=== PATIENT | female | born 1985 | race Caucasian/White ===

== ENCOUNTER → 2019-06-18 | Outpatient (CLI) | payer MEDICAID ==
[2019-06-18 15:38] LABS: Basophils % (A) 1 %; Eosinophils # (A) 0.3 k/uL (0-0.7); Eosinophils % (A) 4 %; HCT 44.2 % (34.0-46.0); HGB 15.1 gm/dL (11.4-16.0); Lymphocytes # (A) 1.8 k/uL (1.0-4.8); Lymphocytes % (A) 23 %; MCHC 34.1 g/dL (31.0-37.0); MCV 93.8 fL (80.0-100.0); Mean Platelet Volume 7.3; Monocytes # (A) 0.3 k/uL (0-1.0); Monocytes % (A) 4 %; Neutrophils # (A) 5.2 k/uL (1.3-7.7); Neutrophils % (A) 68 %; Platelet Count 248 k/uL (150-450); RBC 4.71 m/uL (3.80-5.40); WBC 7.6 k/uL (3.8-10.6)
[2019-06-18 18:34] LABS: Erythrocyte Sedimentation Rate 7 mm/hr (0-20)
[2019-06-18 23:17] LABS: Anti-DNA, DS unit <1.0 IU/mL; Anti-Smith Ab Interp NEGATIVE (NEGATIVE); Cardiolipin Ab IgG Interp NEGATIVE (NEGATIVE); Centromere Antibody <0.2 AI; Centromere Antibody Interp NEGATIVE (NEGATIVE); Cyclic Citrull Pep IgG Unit >300.0 U/mL; Cyclic Citrullinated Pep IgG POSITIVE (NEGATIVE); DNA Double-Stranded NEGATIVE (NEGATIVE); Scleroderma SC-70 Ab <0.2 AI
[2019-06-18 23:18] LABS: Cardiolipin Ab IgM Interp NEGATIVE (NEGATIVE); Cardiolipin IgM Antibody 3.2 U/mL
[2019-06-19 00:28] LABS: Protein, Total 6.7 g/dL (6.2-8.2)
[2019-06-19 00:59] LABS: Vitamin D 25 Hydroxy 22.1 ng/mL (30.0-100.0)
[2019-06-19 01:07] LABS: Rheumatoid Factor 361 IU/mL (0-15)
[2019-06-19 01:08] LABS: ALT 15 U/L (8-44); AST 16 U/L (13-35); African American GFR (CKD) 95.3 (60.0-200.0); Albumin/Globulin Ratio 2.05 (1.60-3.17); Alkaline Phosphatase 45 U/L (41-126); BUN/Creat Ratio 16.67 Ratio (12.00-20.00); C Reactive Protein <0.4 mg/dL (0.0-0.8); Calcium 8.9 mg/dL (8.7-10.3); Carbon Dioxide 24.3 mmol/L (21.6-31.8); Chloride 107 mmol/L (96-109); Creatine Kinase 57 U/L (26-186); Globulin 2.2 g/dL (1.6-3.3); Glucose 84 mg/dL (70-110); Potassium 4.3 mmol/L (3.5-5.5); Sodium 140 mmol/L (135-145); Total Bilirubin 0.8 mg/dL (0.3-1.2); Total Protein 6.7 g/dL (6.2-8.2); Uric Acid 5.1 mg/dL (2.9-7.7)
[2019-06-19 03:58] LABS: Hepatitis B Surface Antigen Non-Reactive (Non-Reactive); Hepatitis C IgG Antibody Non-Reactive (Non-Reactive)
[2019-06-19 08:48] LABS: Angiotensin-1 Converting Enz. 38 U/L (8-52)
[2019-06-19 10:42] LABS: HLA B27 NEGATIVE
[2019-06-19 13:21] LABS: APTT 36 Sec(s) (<43); Dilute Russell Viper Venom 35 Sec(s) (<44)
[2019-06-19 14:17] LABS: C-ANCA <1:20 Titer (<1:20)
[2019-06-20 11:15] LABS: Aldolase 3.6 U/L (1.2-7.6)
== END | disposition home or self-care (01) ==
LOC: LABWHC1 14:27
PROVIDERS: ATTEND Internal Medicine Rheumatology
DX: M05.79 Rheumatoid arthritis with rheumatoid factor of multiple sites without organ or systems involvement (principal); M54.5 Low back pain; G89.29 Other chronic pain
CPT/HCPCS: 36415; 80053; 82085; 82164; 82306; 82550; 84165; 84439; 84443; 84550; 85025; 85613; 85652; 85730; 86038; 86140; 86147; 86160; 86162; 86200; 86225; 86235; 86255; 86334; 86431; 86698; 86803; 86812; 87340

== ENCOUNTER 2020-02-20 18:18 | Inpatient (IN) | payer MEDICAID, MEDICARE ==
[2020-02-20] MEDS ORDERED: SODIUM CHLORIDE 0.9% 1,000 ML IV ONE (18:28)
[2020-02-20] MEDS ORDERED: SODIUM CHLORIDE 0.9% 500 ML 500 ML IV ONE ×2 (18:28→21:21)
--- NOTE | 2020-02-20 19:03 | ED ---
Fever HPI - General Chief Complaint: Fever Stated Complaint: UTI Time Seen by Provider: 02/20/20 18:25 Source: patient Mode of arrival: ambulatory Limitations: no limitations - History of Present Illness Initial Comments: 34yo female history of rheumatoid arthritis on Humira presents emergency department today for chief complaint of back pain, dysuria urgency frequency presenting to the emergency department today for chief complaint of antibiotics not using. Patient states that for over a week she has had dysuria urgency frequency. She states the past day she's had fever and low back pain. She states she was on Macrobid. Patient was concerned that the infection was spreading she states she is immune compromised on Humira. Patient denies darrell tional complaints. Denies any pelvic pain and vaginal discharge or concern for sexually transmitted diseases. Upon arrival patient appears well and in good spirits however she is tachycardic with a temperature of 99.5 suspected previous fever as patient had just taken Tylenol and ibuprofen a few hours prior to arrival - Related Data Home Medications Medication Instructions Recorded Confirmed ARIPiprazole [Abilify] 5 mg PO DAILY 02/20/20 02/20/20 Adalimumab [Humira] 80 mg SQ [id number] 02/20/20 02/20/20 Divalproex [Depakote] 250 mg PO HS 02/20/20 02/20/20 FLUoxetine HCL [PROzac] 20 mg PO HS 02/20/20 02/20/20 Allergies Allergy/AdvReac Type Severity Reaction Status Date / Time lamotrigine [From Lamictal] Allergy Intermediate Rash/Hives Verified 02/20/20 21:17 Review of Systems ROS Statement: Those systems with pertinent positive or pertinent negative responses have been documented in the HPI. ROS Other: All systems not noted in ROS Statement are negative. Past Medical History Past Medical History: Rheumatoid Arthritis (RA) Additional Past Medical History / Comment(s): RA History of Any Multi-Drug Resistant Organisms: None Reported Past Surgical History: No Surgical Hx Reported Past Psychological History: Depression Smoking Status: Never smoker Past Alcohol Use History: Occasional Past Drug Use History: None Reported - Past Family History Mother Family Medical History: No Reported History General Exam - General Exam Comments Initial Comments: General: The patient is awake and alert, in no distress Eye: +3 mm pupils are equal, round and reactive to light, extra-ocular movements are intact. No nystagmus. There is normal conjunctiva bilaterally. No signs of icterus. Ears, nose, mouth and throat: There are moist mucous membranes and no oral lesions. Neck: The neck is supple, there is no tenderness or JVD. Cardiovascular: There is a regular rate and rhythm. No murmur, rub or gallop is appreciated. Respiratory: Lungs are clear to auscultation, respirations are non-labored, breath sounds are equal. No wheezes, stridor, rales, or rhonchi. Gastrointestinal: Soft, non-distended, non-tender abdomen without masses or organomegaly noted. There is no rebound or guarding present.SOme CVA tenderness b/l. Musculoskeletal: Normal ROM, no tenderness. Strength 5/5. Sensation intact. Radial pulses equal bilaterally 2+. Neurological: A&O x 3. CN II-XII intact grossly, There are no obvious motor or sensory deficits. Coordination appears grossly intact. Speech is normal. Skin: Skin is warm and dry and no rashes or lesions are noted. Psychiatric: Cooperative, appropriate mood & affect, normal judgment. Limitations: no limitations Course Vital Signs 02/20/20 02/20/20 18:20 20:31 Temperature 99.5 F 98 F Pulse Rate 137 H 113 H Respiratory 20 16 Rate Blood Pressure 122/86 123/63 O2 Sat by Pulse 99 99 Oximetry Medical Decision Making - Medical Decision Making 34 or female presenting for urinary tract symptoms low back pain fever. Concern for pyelonephritis given physical examination history. Patient is tachycardic concern for developing sepsis. Speculum IV antibiotics and fluids initiated. Patient failed outpatient treatment and is immuncompromised. Will admit. Blood cultures and urine cultures pending. Patient agreeable to admission. Dr. Ochoa accepted admission. Total 30 minutes of critical care time which include speaking to other providers reviewing labs history and physical examination - Lab Data Result diagrams: 02/20/20 18:53 02/20/20 18:53 Lab Results 02/20/20 02/20/20 02/20/20 Range/Units 18:53 18:53 18:53 WBC 11.2 H (3.8-10.6) k/uL RBC 4.27 (3.80-5.40) m/uL Hgb 13.5 (11.4-16.0) gm/dL Hct 39.5 (34.0-46.0) % MCV 92.6 (80.0-100.0) fL MCH 31.5 (25.0-35.0) pg MCHC 34.1 (31.0-37.0) g/dL RDW 12.7 (11.5-15.5) % Plt Count 193 (150-450) k/uL Neutrophils % 85 % Lymphocytes % 9 % Monocytes % 3 % Eosinophils % 2 % Basophils % 0 % Neutrophils # 9.5 H (1.3-7.7) k/uL Lymphocytes # 1.0 (1.0-4.8) k/uL Monocytes # 0.4 (0-1.0) k/uL Eosinophils # 0.2 (0-0.7) k/uL Basophils # 0.0 (0-0.2) k/uL Sodium 136 L (137-145) mmol/L Potassium 3.7 (3.5-5.1) mmol/L Chloride 104 (98-107) mmol/L Carbon Dioxide 22 (22-30) mmol/L Anion Gap 10 mmol/L BUN 8 (7-17) mg/dL Creatinine 0.78 (0.52-1.04) mg/dL Est GFR (CKD-EPI)AfAm >90 (>60 ml/min/1.73 sqM) Est GFR (CKD-EPI)NonAf >90 (>60 ml/min/1.73 sqM) Glucose 120 H (74-99) mg/dL Plasma Lactic Acid [place] (0.7-2.0) mmol/L Calcium 8.7 (8.4-10.2) mg/dL Total Bilirubin 1.2 (0.2-1.3) mg/dL AST 20 (14-36) U/L ALT 13 (4-34) U/L Alkaline Phosphatase 40 (38-126) U/L Total Protein 6.5 (6.3-8.2) g/dL Albumin 3.7 (3.5-5.0) g/dL Urine Color Yellow Urine Appearance Cloudy H (Clear) Urine pH 6.0 (5.0-8.0) Ur Specific [place] 1.021 (1.001-1.035) Urine Protein 2+ H (Negative) Urine Glucose (UA) Negative (Negative) Urine Ketones Trace H (Negative) Urine Blood Moderate H (Negative) Urine Nitrite Negative (Negative) Urine Bilirubin Negative (Negative) Urine Urobilinogen 3.0 (<2.0) mg/dL Ur Leukocyte Esterase Large H (Negative) Urine RBC 21 H (0-5) /hpf Urine WBC >182 H (0-5) /hpf Urine WBC Clumps Few H (None) /hpf Ur Squamous Epith Cells 4 (0-4) /hpf Urine Bacteria Moderate H (None) /hpf Urine Mucus Many H (None) /hpf 02/20/20 Range/Units 18:53 WBC (3.8-10.6) k/uL RBC (3.80-5.40) m/uL Hgb (11.4-16.0) gm/dL Hct (34.0-46.0) % MCV (80.0-100.0) fL MCH (25.0-35.0) pg MCHC (31.0-37.0) g/dL RDW (11.5-15.5) % Plt Count (150-450) k/uL Neutrophils % % Lymphocytes % % Monocytes % % Eosinophils % % Basophils % % Neutrophils # (1.3-7.7) k/uL Lymphocytes # (1.0-4.8) k/uL Monocytes # (0-1.0) k/uL Eosinophils # (0-0.7) k/uL Basophils # (0-0.2) k/uL Sodium (137-145) mmol/L Potassium (3.5-5.1) mmol/L Chloride (98-107) mmol/L Carbon Dioxide (22-30) mmol/L Anion Gap mmol/L BUN (7-17) mg/dL Creatinine (0.52-1.04) mg/dL Est GFR (CKD-EPI)AfAm (>60 ml/min/1.73 sqM) Est GFR (CKD-EPI)NonAf (>60 ml/min/1.73 sqM) Glucose (74-99) mg/dL Plasma Lactic Acid [place] 0.9 (0.7-2.0) mmol/L Calcium (8.4-10.2) mg/dL Total Bilirubin (0.2-1.3) mg/dL AST (14-36) U/L ALT (4-34) U/L Alkaline Phosphatase (38-126) U/L Total Protein (6.3-8.2) g/dL Albumin (3.5-5.0) g/dL Urine Color Urine Appearance (Clear) Urine pH (5.0-8.0) Ur Specific [place] (1.001-1.035) Urine Protein (Negative) Urine Glucose (UA) (Negative) Urine Ketones (Negative) Urine Blood (Negative) Urine Nitrite (Negative) Urine Bilirubin (Negative) Urine Urobilinogen (<2.0) mg/dL Ur Leukocyte Esterase (Negative) Urine RBC (0-5) /hpf Urine WBC (0-5) /hpf Urine WBC Clumps (None) /hpf Ur Squamous Epith Cells (0-4) /hpf Urine Bacteria (None) /hpf Urine Mucus (None) /hpf Disposition Clinical Impression: Pyelonephritis, Fever, Sepsis Disposition: ADMITTED IP TO THIS HOSP Condition: Stable Is patient prescribed a controlled substance at d/c from ED?: No Time of Disposition: 21:22 Decision to Admit Reason: Admit from EC Decision Date: 02/20/20 Decision Time: 21:22
[2020-02-20 19:08] LABS: Basophils % (A) 0 %; Eosinophils # (A) 0.2 k/uL (0-0.7); Eosinophils % (A) 2 %; HCT 39.5 % (34.0-46.0); HGB 13.5 gm/dL (11.4-16.0); Lymphocytes % (A) 9 %; MCH 31.5 pg (25.0-35.0); MCHC 34.1 g/dL (31.0-37.0); MCV 92.6 fL (80.0-100.0); Mean Platelet Volume 7.8; Monocytes # (A) 0.4 k/uL (0-1.0); Monocytes % (A) 3 %; Neutrophils # (A) 9.5 k/uL (1.3-7.7); Neutrophils % (A) 85 %; Platelet Count 193 k/uL (150-450); RBC 4.27 m/uL (3.80-5.40); RDW 12.7 % (11.5-15.5); WBC 11.2 k/uL (3.8-10.6)
[2020-02-20 19:19] LABS: ALT 13 U/L (4-34); AST 20 U/L (14-36); African American GFR (CKD) >90 (>60 ml/min/1.73 sqM); Albumin 3.7 g/dL (3.5-5.0); Alkaline Phosphatase 40 U/L (38-126); Anion Gap 10 mmol/L; Blood Urea Nitrogen 8 mg/dL (7-17); Calcium 8.7 mg/dL (8.4-10.2); Carbon Dioxide 22 mmol/L (22-30); Chloride 104 mmol/L (98-107); Glucose 120 mg/dL (74-99); Non-African American GFR(CKD) >90 (>60 ml/min/1.73 sqM); Potassium 3.7 mmol/L (3.5-5.1); Sodium 136 mmol/L (137-145); Total Bilirubin 1.2 mg/dL (0.2-1.3); Total Protein 6.5 g/dL (6.3-8.2)
[2020-02-20 19:21] LABS: Appearance,Urine Cloudy (Clear); Bacteria,Urine Moderate /hpf; Bilirubin,Urine Negative (Negative); Blood,Urine Moderate (Negative); Color,Urine Yellow; Glucose,Urine (UA) Negative (Negative); Ketones,Urine Trace (Negative); Leukocyte Esterase,Urine Large (Negative); Mucus,Urine Many /hpf; Nitrite,Urine Negative (Negative); Protein,Urine 2+ (Negative); RBC,Urine 21 /hpf (0-5); Specific Gravity,Urine 1.021 (1.001-1.035); Squamous Epithelial Cell,Urine 4 /hpf (0-4); WBC,Urine >182 /hpf (0-5)
[2020-02-20] MEDS ORDERED: NALOXONE 0.4 MG/ML 1 ML VIAL IV PRN (19:46)
[2020-02-20] MEDS: FLUoxetine HCL 20 MG CAP PO SCH (23:23)
[2020-02-20] MEDS: DIVALPROEX 250 MG TABLET.DR PO SCH (23:23)
[2020-02-20] MEDS: SODIUM CHLORIDE 0.9% 1,000 ML IV SCH (23:23)
[2020-02-21] MEDS: ACETAMINOPHEN TAB 325 MG TAB PO PRN ×2 (04:07→16:21)
[2020-02-21] MEDS: SODIUM CHLORIDE 0.9% 1,000 ML IV SCH ×3 (04:46→20:27)
[2020-02-21] MEDS: IBUPROFEN 600 MG TAB PO PRN ×3 (05:32→20:25)
[2020-02-21] MEDS ORDERED: IBUPROFEN 600 MG TAB PO SCH (09:00)
[2020-02-21] MEDS: ARIPiprazole 5 MG TAB PO SCH (09:22)
[2020-02-21] MEDS: FLUoxetine HCL 20 MG CAP PO SCH (20:36)
[2020-02-21] MEDS: DIVALPROEX 250 MG TABLET.DR PO SCH (20:36)
--- NOTE | 2020-02-21 21:25 | P.HPIM ---
History of Present Illness H&P Date: 02/21/20 Chief Complaint: dysuria, flank pain Camila Good is a 34 yo F with PMH of RA on humira, depression who presented to the ED complaining of fever, chills, dysuria and flank pain x2 weeks. She was seen at her PCP office at the end of last month and was prescribed macrobid for acute cystitis, which she feels did improve her symptoms. She notes that after she received her usual maintenance dose of humira about a week ago her symptoms came back. She has been feeling chills every night as well as dysuria. She denies nausea or vomiting. In the ED she was tachycardic at 135, temp 99.5 and had just taken ibuprofen prior to arrival. WBC 11.2, UA with mod bacteria. Outpatient urine culture with hernandez-sensitive E coli. Review of Systems All systems: negative Constitutional: Reports chills, Reports fever Eyes: denies blurred vision, denies pain Ears, nose, mouth and throat: Denies headache, Denies sore throat Cardiovascular: Denies chest pain, Denies shortness of breath Respiratory: Denies cough Gastrointestinal: Denies abdominal pain, Denies diarrhea, Denies nausea, Denies vomiting Genitourinary: Reports as per HPI, Reports dysuria, Reports flank pain, Denies hematuria Musculoskeletal: Denies myalgias Integumentary: Denies pruritus, Denies rash Neurological: Denies numbness, Denies weakness Psychiatric: Denies anxiety, Denies depression Endocrine: Denies fatigue, Denies weight change Past Medical History Past Medical History: Rheumatoid Arthritis (RA) Additional Past Medical History / Comment(s): RA History of Any Multi-Drug Resistant Organisms: None Reported Past Surgical History: No Surgical Hx Reported Past Anesthesia/Blood Transfusion Reactions: No Reported Reaction Past Psychological History: Depression Smoking Status: Never smoker Past Alcohol Use History: Occasional Past Drug Use History: None Reported - Past Family History Mother Family Medical History: No Reported History Medications and Allergies Home Medications Medication Instructions Recorded Confirmed Type ARIPiprazole [Abilify] 5 mg PO DAILY 02/20/20 02/20/20 History Adalimumab [Humira] 80 mg SQ [id number] 02/20/20 02/20/20 History Divalproex [Depakote] 250 mg PO HS 02/20/20 02/20/20 History FLUoxetine HCL [PROzac] 20 mg PO HS 02/20/20 02/20/20 History Allergies Allergy/AdvReac Type Severity Reaction Status Date / Time lamotrigine [From Lamictal] Allergy Intermediate Rash/Hives Verified 02/20/20 21:17 Physical Exam Vitals: Vital Signs Temp Pulse Resp BP Pulse Ox 02/21/20 20:21 99 F 113 H 18 91/61 100 02/21/20 16:15 98.8 F 99 18 96/57 100 02/21/20 09:12 97.9 F 107 H 16 100 02/20/20 23:00 99.4 F 102 H 18 103/59 100 Intake and Output 02/21/20 02/21/20 02/21/20 06:59 14:59 22:59 Intake Total 580 500 Output Total 200 Balance 380 500 Intake: Oral 580 500 Output: Urine 200 Other: Voiding Method Toilet Toilet Toilet # Voids 3 General: well nourished, well developed, NAD. Vitals reviewed Eyes: PERRL, EOMI, conjunctiva normal HENT: normocephalic, mucus membranes moist Neck: supple, no JVD Lungs: normal respiratory effort, no wheezes or rales CV: Regular rate and rhythm, no murmur. Peripheral pulses 2+ Abdomen: soft, nondistended, no organomegaly. Mild CVA tenderness Lymph: no cervical or axillary LAD Skin: warm and dry. Neuro: A&Ox3, normal mood and affect Results CBC & Chem 7: 02/20/20 18:53 02/20/20 18:53 Labs: Microbiology - Last 24 Hours (Table) 02/20/20 18:53 Blood Culture - Preliminary Blood No Growth after 24 hours 02/20/20 18:53 Urine Culture - Preliminary Urine,Clean Catch Thrombosis Risk Factor Assmnt - Choose All That Apply Any of the Below Risk Factors Present?: Yes Each Factor Represents 1 point: Obesity (BMI >25) Other Risk Factors: No Thrombosis Risk Factor Assessment Total Risk Factor Score: 1 Thrombosis Risk Factor Assessment Level: Low Risk Assessment and Plan (1) Fever Current Visit: Yes Status: Acute Code(s): R50.9 - FEVER, UNSPECIFIED SNOMED Code(s): 244841661 (2) Pyelonephritis Current Visit: Yes Status: Acute Code(s): N12 - TUBULO-INTERSTITIAL NEPHRITIS, NOT SPCF ACUTE OR CHRONIC SNOMED Code(s): 08413273 (3) Sepsis Current Visit: Yes Status: Acute Code(s): A41.9 - SEPSIS, UNSPECIFIED ORGANISM SNOMED Code(s): 64390045 Plan: 1. Sepsis due to pyelonephritis. SIRS 2/4 with immunocompromise. Admit and start rocephin. Follow blood and urine cultures 2. Major depression. Continue abilify, prozac, depakote 3. RA. Resume humira after discharge
[2020-02-22] MEDS: SODIUM CHLORIDE 0.9% 1,000 ML IV SCH ×4 (01:19→23:11)
[2020-02-22] MEDS: ACETAMINOPHEN TAB 325 MG TAB PO PRN ×2 (01:42→09:41)
[2020-02-22] MEDS: IBUPROFEN 600 MG TAB PO PRN ×3 (05:24→21:21)
[2020-02-22] MEDS: ARIPiprazole 5 MG TAB PO SCH (09:36)
[2020-02-22] MEDS: FAMOTIDINE 20 MG TAB PO SCH ×2 (15:53→20:32)
[2020-02-22] MEDS: FLUoxetine HCL 20 MG CAP PO SCH (20:32)
[2020-02-22] MEDS: DIVALPROEX 250 MG TABLET.DR PO SCH (20:32)
--- NOTE | 2020-02-22 23:09 | P.PN ---
Subjective Progress Note Date: 02/22/20 Principal diagnosis: Sepsis secondary to UTI Camila Good is a 34 yo F with PMH of RA on humira, depression who presented to the ED complaining of fever, chills, dysuria and flank pain x2 weeks. She was seen at her PCP office at the end of last month and was prescribed macrobid for acute cystitis, which she feels did improve her symptoms. She notes that after she received her usual maintenance dose of humira about a week ago her symptoms came back. She has been feeling chills every night as well as dysuria. She denies nausea or vomiting. In the ED she was tachycardic at 135, temp 99.5 and had just taken ibuprofen prior to arrival. WBC 11.2, UA with mod bacteria. Outpatient urine culture with hernandez-sensitive E coli. 02/22/2020 Patient is currently lying in the bed. Still complains of right-sided flank pain. Did have chills last night T-max was 99.1. Urine culture showed gram- negative bacilli. Patient is currently being continued on antibiotics in the form of ceftriaxone. Currently afebrile. Continued on IV hydration and pain management with Motrin and Tylenol. Current medications reviewed. Objective - Vital Signs Vital signs: Vital Signs Temp 99.1 F 02/22/20 08:25 Pulse 108 H 02/22/20 08:25 Resp 18 02/22/20 08:25 BP 101/55 02/22/20 08:25 Pulse Ox 97 02/22/20 08:25 Intake & Output 02/21/20 02/22/20 02/22/20 18:59 06:59 18:59 Intake Total 500 2049 Balance 500 2049 Intake: Intake, IV Titration 1000 Amount Sodium Chloride 0.9% 1, 1000 000 ml @ 130 mls/hr IV . Q7H42M [facility] Rx#:[id number] Oral 500 1050 Other: Voiding Method Toilet Toilet Toilet # Voids 3 3 - Exam General: well nourished, well developed, NAD. Vitals reviewed Eyes: PERRL, EOMI, conjunctiva normal HENT: normocephalic, mucus membranes moist Neck: supple, no JVD Lungs: normal respiratory effort, no wheezes or rales CV: Regular rate and rhythm, no murmur. Peripheral pulses 2+ Abdomen: soft, nondistended, no organomegaly. Mild CVA tenderness Lymph: no cervical or axillary LAD Skin: warm and dry. Neuro: A&Ox3, normal mood and affect - Labs CBC & Chem 7: 02/20/20 18:53 06 18:53 Labs: Microbiology - Last 24 Hours (Table) 02/20/20 18:53 Urine Culture - Preliminary Urine,Clean Catch Gram Neg Bacilli 02/20/20 18:53 Blood Culture - Preliminary Blood No Growth after 24 hours Assessment and Plan Assessment: Acute pyelonephritis Gram-negative bacilli urinary tract infection Sepsis secondary to above History of rheumatoid arthritis currently on Humira Major depression DVT prophylaxis Plan: Patient will be continued on IV hydration and antibiotics in the form of ceftriaxone. Follow-up final urine culture report. blood cx negative sofar Con tinue with pain management and monitor closely. Patient will continue antidepressants as per home regimen and also will resume Humira after discharge. Hold due to acute infection. Further recommendations based on the clinical course. Time with Patient: Greater than 30
[2020-02-23 06:27] LABS: Basophils % (A) 0 %; Eosinophils # (A) 0.1 k/uL (0-0.7); Eosinophils % (A) 1 %; HGB 10.7 gm/dL (11.4-16.0); Lymphocytes # (A) 1.2 k/uL (1.0-4.8); Lymphocytes % (A) 30 %; MCH 31.8 pg (25.0-35.0); MCHC 33.6 g/dL (31.0-37.0); MCV 94.5 fL (80.0-100.0); Mean Platelet Volume 8.4; Monocytes # (A) 0.3 k/uL (0-1.0); Monocytes % (A) 8 %; Neutrophils # (A) 2.2 k/uL (1.3-7.7); Neutrophils % (A) 57 %; Platelet Count 138 k/uL (150-450); RBC 3.38 m/uL (3.80-5.40); RDW 12.6 % (11.5-15.5)
[2020-02-23 06:45] LABS: African American GFR (CKD) >90 (>60 ml/min/1.73 sqM); Anion Gap 2 mmol/L; Blood Urea Nitrogen 3 mg/dL (7-17); Calcium 7.4 mg/dL (8.4-10.2); Carbon Dioxide 23 mmol/L (22-30); Chloride 114 mmol/L (98-107); Glucose 96 mg/dL (74-99); Non-African American GFR(CKD) >90 (>60 ml/min/1.73 sqM); Potassium 3.4 mmol/L (3.5-5.1); Sodium 139 mmol/L (137-145)
[2020-02-23] MEDS: IBUPROFEN 600 MG TAB PO PRN ×3 (07:06→18:42)
[2020-02-23] MEDS: SODIUM CHLORIDE 0.9% 1,000 ML IV SCH ×2 (08:08→14:43)
[2020-02-23] MEDS: FAMOTIDINE 20 MG TAB PO SCH (08:08)
[2020-02-23] MEDS: ARIPiprazole 5 MG TAB PO SCH (08:08)
[2020-02-23] MEDS ORDERED: POTASSIUM CHLORIDE ER 20 MEQ TAB.ER PO STA (11:49)
[2020-02-23] MEDS ORDERED: PANTOPRAZOLE 40 MG TABLET PO STA (20:06)
[2020-02-23] MEDS: DIVALPROEX 250 MG TABLET.DR PO SCH (20:13)
[2020-02-23] MEDS: FLUoxetine HCL 20 MG CAP PO SCH (20:13)
--- NOTE | 2020-02-24 01:22 | P.PN ---
Subjective Progress Note Date: 02/23/20 Principal diagnosis: Sepsis secondary to UTI Camila Good is a 34 yo F with PMH of RA on humira, depression who presented to the ED complaining of fever, chills, dysuria and flank pain x2 weeks. She was seen at her PCP office at the end of last month and was prescribed macrobid for acute cystitis, which she feels did improve her symptoms. She notes that after she received her usual maintenance dose of humira about a week ago her symptoms came back. She has been feeling chills every night as well as dysuria. She denies nausea or vomiting. In the ED she was tachycardic at 135, temp 99.5 and had just taken ibuprofen prior to arrival. WBC 11.2, UA with mod bacteria. Outpatient urine culture with hernandez-sensitive E coli. 02/22/2020 Patient is currently lying in the bed. Still complains of right-sided flank pain. Did have chills last night T-max was 99.1. Urine culture showed gram- negative bacilli. Patient is currently being continued on antibiotics in the form of ceftriaxone. Currently afebrile. Continued on IV hydration and pain management with Motrin and Tylenol. 02/23/2020 Patient is currently ambulating in the hallway. No complaints of chest pain or shortness of breath. Still having right -sided flank pain but improved compared to yesterday. Patient has been afebrile. Tolerating oral diet and IV fluids will be discontinued. Urine culture showed gram-negative bacilli and final culture report is pending. Anticipate discharge tomorrow with antibiotic course at home. Current medications reviewed. Objective - Vital Signs Vital signs: Vital Signs Temp 98.4 F 02/23/20 20:03 Pulse 100 02/23/20 20:03 Resp 16 02/23/20 20:03 BP 104/64 02/23/20 20:03 Pulse Ox 100 02/23/20 20:03 Intake & Output 02/23/20 02/23/20 02/24/20 06:59 18:59 06:59 Intake Total 3150 Balance 3150 Intake: Intake, IV Titration 2000 Amount Sodium Chloride 0.9% 1, 2000 000 ml @ 130 mls/hr IV . Q7H42M [facility] Rx#:[id number] Oral 1150 Other: Voiding Method Toilet Toilet # Voids 2 3 - Exam General: well nourished, well developed, NAD. Vitals reviewed Eyes: PERRL, EOMI, conjunctiva normal HENT: normocephalic, mucus membranes moist Neck: supple, no JVD Lungs: normal respiratory effort, no wheezes or rales CV: Regular rate and rhythm, no murmur. Peripheral pulses 2+ Abdomen: soft, nondistended, no organomegaly. Mild CVA tenderness Lymph: no cervical or axillary LAD Skin: warm and dry. Neuro: A&Ox3, normal mood and affect - Labs CBC & Chem 7: 02/23/20 05:49 02/23/20 05:49 Labs: Abnormal Lab Results - Last 24 Hours (Table) 02/23/20 02/23/20 Range/Units 05:49 05:49 RBC 3.38 L (3.80-5.40) m/uL Hgb 10.7 L (11.4-16.0) gm/dL Hct 32.0 L (34.0-46.0) % Plt Count 138 L (150-450) k/uL Potassium 3.4 L (3.5-5.1) mmol/L Chloride 114 H (98-107) mmol/L BUN 3 L (7-17) mg/dL Calcium 7.4 L (8.4-10.2) mg/dL Microbiology - Last 24 Hours (Table) 02/20/20 18:53 Urine Culture - Final Urine,Clean Catch Escherichia coli 02/20/20 18:53 Blood Culture - Preliminary Blood No Growth after 48 hours Assessment and Plan Assessment: Acute pyelonephritis Gram-negative bacilli urinary tract infection Sepsis secondary to above History of rheumatoid arthritis currently on Humira Major depression DVT prophylaxis Plan: Patient will be continued on IV hydration and antibiotics in the form of ceftriaxone. Follow-up final urine culture report. blood cx negative sofar Continue with pain management and monitor closely. Patient will continue antidepressants as per home regimen and also will resume Humira after discharge. Hold due to acute infection. Further recommendations based on the clinical course. Time with Patient: Greater than 30
[2020-02-24] MEDS: IBUPROFEN 600 MG TAB PO PRN (02:18)
[2020-02-24] MEDS ORDERED: PANTOPRAZOLE 40 MG TABLET PO SCH (07:30)
[2020-02-24] MEDS: ARIPiprazole 5 MG TAB PO SCH (08:19)
[2020-02-24 09:39] VITALS: BP 116/77; PULSE 97; RESP 20; TEMP 98.1
--- NOTE | 2020-02-24 10:10 | P.DS ---
Providers Date of admission: 02/20/20 20:13 Expected date of discharge: 02/24/20 Attending physician: Viraj Ochoa MD Primary care physician: Mady Ochoa Hospital Course: Final Diagnoses: Sepsis secondary to pyelonephritis Depression Rheumatoid arthritis Hypokalemia Hospital course:Camila Good is a 34 yo F with PMH of RA on humira, depression who presented to the ED complaining of fever, chills, dysuria and flank pain x2 weeks. She was seen at her PCP office at the end of last month and was prescribed macrobid for acute cystitis, which she feels did improve her symptoms. She notes that after she received her usual maintenance dose of humira about a week ago her symptoms came back. She has been feeling chills every night as well as dysuria. She denies nausea or vomiting. In the ED she was tachycardic at 135, temp 99.5 and had just taken ibuprofen prior to arrival. WBC 11.2, UA with mod bacteria. Outpatient urine culture with hernandez-sensitive E coli. Urine cultures reporting E. coli . Maintained on gentle fluid hydration, IV antibiotics .Significant clinical improvement. Patient will be discharged home today in a stable condition with guarded prognosis pending follow-up electrolytes. The impression and plan of care has been dictated as directed. : I performed a history and examination of this patient, discussed the same with the dictator. I agree with the dictator's note ,documented as a scribe. Any additional findings or plans will be noted. Patient Condition at Discharge: Stable Plan - Discharge Summary Discharge Rx Participant: No New Discharge Prescriptions: New Ciprofloxacin HCl [Cipro] 500 mg PO Q12H 5 Days #10 tab Acetaminophen Tab [Tylenol] 650 mg PO Q6HR PRN tab PRN Reason: Fever and/ or Mild Pain Continue FLUoxetine HCL [PROzac] 20 mg PO HS ARIPiprazole [Abilify] 5 mg PO DAILY Divalproex [Depakote] 250 mg PO HS Adalimumab [Humira] 80 mg SQ [id number] Discharge Medication List ARIPiprazole [Abilify] 5 mg PO DAILY 02/20/20 [History] Adalimumab [Humira] 80 mg SQ [id number] 02/20/20 [History] Divalproex [Depakote] 250 mg PO HS 02/20/20 [History] FLUoxetine HCL [PROzac] 20 mg PO HS 02/20/20 [History] Acetaminophen Tab [Tylenol] 650 mg PO Q6HR PRN tab 02/24/20 [Rx] Ciprofloxacin HCl [Cipro] 500 mg PO Q12H 5 Days #10 tab 02/24/20 [Rx] Follow up Appointment(s)/Referral(s): Viraj Ochoa MD [STAFF PHYSICIAN] - 1-2 Days (Please schedule follow-up appointment for tomorrow at [facility] prior to discharge. February 24 at 2:15pm) Ambulatory/Diagnostic Orders: Complete Blood Count w/diff [LAB.AMB] Time Frame: 3 Days, Location: None Selected Patient Instructions/Handouts: Urinary Tract Infection in Women (DC) Activity/Diet/Wound Care/Special Instructions: Pending f/u labs. FOLLOW UP DIRECTED, SOONER IF PROBLEMS OR CONCERNS IE...WORSENING SYMPTOMS THAT BROUGHT YOU IN.
[2020-02-24 10:34] LABS: HGB 10.3 gm/dL (11.4-16.0); MCH 31.2 pg (25.0-35.0); MCHC 33.2 g/dL (31.0-37.0); MCV 94.2 fL (80.0-100.0); Mean Platelet Volume 7.7; Platelet Count 195 k/uL (150-450); RBC 3.29 m/uL (3.80-5.40); RDW 12.7 % (11.5-15.5); WBC 4.8 k/uL (3.8-10.6)
[2020-02-24 10:39] LABS: African American GFR (CKD) >90 (>60 ml/min/1.73 sqM); Anion Gap 3 mmol/L; Blood Urea Nitrogen 2 mg/dL (7-17); Calcium 7.8 mg/dL (8.4-10.2); Carbon Dioxide 23 mmol/L (22-30); Chloride 113 mmol/L (98-107); Glucose 94 mg/dL (74-99); Magnesium 1.9 mg/dL (1.6-2.3); Non-African American GFR(CKD) >90 (>60 ml/min/1.73 sqM); Potassium 3.4 mmol/L (3.5-5.1); Sodium 139 mmol/L (137-145)
[2020-02-24] MEDS ORDERED: Potassium Replacement Protocol 1 EACH MISC MISCELLANE PRN (12:10)
[2020-02-24] MEDS: POTASSIUM CHLORIDE ER 20 MEQ TAB.ER PO SCH ×2 (12:24→13:34)
== END 2020-02-24 13:43 | disposition home or self-care (01) | DRG 872 ==
LOC: EC 18:18 → 6PED 20:13
PROVIDERS: ADMIT Family Medicine; ATTEND Family Medicine
DX: A41.9 Sepsis, unspecified organism (principal); N10 Acute pyelonephritis; M06.9 Rheumatoid arthritis, unspecified; F32.9 Major depressive disorder, single episode, unspecified; B96.20 Unspecified Escherichia coli [E. coli] as the cause of diseases classified elsewhere; E87.6 Hypokalemia; Z79.899 Other long term (current) drug therapy; Z88.8 Allergy status to other drugs, medicaments and biological substances
CPT/HCPCS: 36415; 80048; 80053; 81001; 83605; 83735; 85025; 85027; 87040; 87077; 87086; 87186; 96361; 96365; 99285

== ENCOUNTER 2021-02-14 14:47 | Emergency (ER) | payer MEDICAID ==
[2021-02-14 14:52] VITALS: BP 115/76; PULSE 97; RESP 20; TEMP 98.6
[2021-02-14 15:31] LABS: Amorphous Sediment,Urine Rare /hpf; Appearance,Urine Cloudy (Clear); Bacteria,Urine Moderate /hpf; Bilirubin,Urine Negative (Negative); Blood,Urine Trace (Negative); Color,Urine Light Yellow; Glucose,Urine (UA) Negative (Negative); Ketones,Urine Negative (Negative); Leukocyte Esterase,Urine Negative (Negative); Nitrite,Urine Negative (Negative); PH, Urine 6.5 (5.0-8.0); Protein,Urine Negative (Negative); RBC,Urine <1 /hpf (0-5); Specific Gravity,Urine 1.004 (1.001-1.035); Squamous Epithelial Cell,Urine 2 /hpf (0-4); Urobilinogen,Urine <2.0 mg/dL (<2.0); WBC,Urine 2 /hpf (0-5)
[2021-02-14] MEDS ORDERED: cefTRIAXone 1,000 MG VIAL (IM USE) IM STA (16:49)
--- NOTE | 2021-02-14 16:55 | ED ---
Abdominal Pain HPI - General Chief Complaint: Abdominal Pain Stated Complaint: lower back pain Time Seen by Provider: 02/14/21 16:30 Source: patient Mode of arrival: ambulatory Limitations: no limitations - History of Present Illness Initial Comments: 35-year-old female with history of pyelonephritis, rheumatoid arthritis and currently on Humira presents to emergency Department with a chief complaint of right flank pain. Patient reports started about 2 days ago with gradual increase in severity. States it feels like her previous palate if it is but she is not experiencing any UTI like symptoms. She denies any hematuria, hematochezia or melena. Denies any nausea vomiting diarrhea fever chills abdominal pain. - Related Data Home Medications Medication Instructions Recorded Confirmed ARIPiprazole [Abilify] 5 mg PO DAILY 02/20/20 02/20/20 Adalimumab [Humira] 80 mg SQ [id number] 02/20/20 02/20/20 Divalproex [Depakote] 250 mg PO HS 02/20/20 02/20/20 FLUoxetine HCL [PROzac] 20 mg PO HS 02/20/20 02/20/20 Previous Rx's Medication Instructions Recorded Acetaminophen Tab [Tylenol] 650 mg PO Q6HR PRN tab 02/24/20 Ciprofloxacin HCl [Cipro] 500 mg PO Q12H 5 Days #10 tab 02/24/20 Cephalexin [Keflex] 500 mg PO TID #30 cap 02/14/21 Allergies Allergy/AdvReac Type Severity Reaction Status Date / Time lamotrigine [From Lamictal] Allergy Intermediate Rash/Hives Verified 02/14/21 14:52 Review of Systems ROS Statement: Those systems with pertinent positive or pertinent negative responses have been documented in the HPI. ROS Other: All systems not noted in ROS Statement are negative. Past Medical History Past Medical History: Rheumatoid Arthritis (RA) Additional Past Medical History / Comment(s): RA History of Any Multi-Drug Resistant Organisms: None Reported Past Surgical History: No Surgical Hx Reported Past Anesthesia/Blood Transfusion Reactions: No Reported Reaction Past Psychological History: Depression Smoking Status: Current every day smoker Past Alcohol Use History: Occasional Past Drug Use History: Marijuana - Past Family History Mother Family Medical History: No Reported History General Exam Limitations: no limitations General appearance: alert, in no apparent distress Head exam: Present: atraumatic, normocephalic, normal inspection Eye exam: Present: normal appearance, PERRL, EOMI Pupils: Present: normal accommodation ENT exam: Present: normal exam, normal oropharynx, mucous membranes moist Neck exam: Present: normal inspection, full ROM. Absent: tenderness Respiratory exam: Present: normal lung sounds bilaterally. Absent: respiratory distress, wheezes, rales, rhonchi, stridor Cardiovascular Exam: Present: regular rate, normal rhythm, normal heart sounds. Absent: systolic murmur GI/Abdominal exam: Present: soft. Absent: distended, tenderness, guarding, rebound Extremities exam: Present: normal inspection, full ROM, normal capillary refill. Absent: tenderness, pedal edema, joint swelling Back exam: Present: normal inspection, full ROM, tenderness, CVA tenderness (R). Absent: CVA tenderness (L), muscle spasm Neurological exam: Present: alert, oriented X3 Psychiatric exam: Present: normal affect, normal mood Skin exam: Present: warm, dry, intact, normal color Course Vital Signs 02/14/21 14:50 Temperature 98.6 F Pulse Rate 97 Respiratory 20 Rate Blood Pressure 115/76 O2 Sat by Pulse 99 Oximetry Medical Decision Making - Medical Decision Making 35-year-old female presents to the emergency department with a chief complaint of right flank pain. On physical examination, right CVA tenderness. Otherwise patient is well-appearing with vital signs within normal limits. I reviewed her medical record which revealed last urine culture was positive for E. coli. Great susceptibility to cephalosporins. UA shows moderate amounts of bacteria but no signs of urinary tract infection. Considering that she is immunosuppressed secondary to Humira, I will treat aggressively with Keflex 3 times a day 500 mg 10 days. Also gave her 1 g Rocephin in the ED. Patient states she caught this UTI before it got worse. I did offer laboratory workup, patient feels comfortable just being treated with antibiotic. Urine culture pending. Strict return parameters were thoroughly discussed the patient was understanding and agreeable. Case discussed with Dr. Engel. - Lab Data Lab Results 02/14/21 Range/Units 15:00 Urine Color Light Yellow Urine Appearance Cloudy H (Clear) Urine pH 6.5 (5.0-8.0) Ur Specific [place] 1.004 (1.001-1.035) Urine Protein Negative (Negative) Urine Glucose (UA) Negative (Negative) Urine Ketones Negative (Negative) Urine Blood Trace H (Negative) Urine Nitrite Negative (Negative) Urine Bilirubin Negative (Negative) Urine Urobilinogen <2.0 (<2.0) mg/dL Ur Leukocyte Esterase Negative (Negative) Urine RBC <1 (0-5) /hpf Urine WBC 2 (0-5) /hpf Ur Squamous Epith Cells 2 (0-4) /hpf Amorphous Sediment Rare H (None) /hpf Urine Bacteria Moderate H (None) /hpf Disposition Clinical Impression: Bacteriuria, Right flank pain Disposition: HOME SELF-CARE Condition: Stable Instructions (If sedation given, give patient instructions): Kidney Infection (ED), Urinary Tract Infection in Women (DC) Additional Instructions: Take prescribed medication as directed. Return to emergency department if symptoms worsen. Prescriptions: Cephalexin [Keflex] 500 mg PO TID #30 cap Is patient prescribed a controlled substance at d/c from ED?: No Referrals: Mady Ochoa DO [Primary Care Provider] - 1-2 days Time of Disposition: 16:55
== END 2021-02-14 17:42 | disposition home or self-care (01) ==
LOC: EC 14:47
DX: R82.71 Bacteriuria (principal); R10.9 Unspecified abdominal pain; M06.9 Rheumatoid arthritis, unspecified; F32.9 Major depressive disorder, single episode, unspecified; F17.200 Nicotine dependence, unspecified, uncomplicated; F12.90 Cannabis use, unspecified, uncomplicated
CPT/HCPCS: 81001; 87086; 99284; 96372; J0696

== ENCOUNTER 2021-03-29 11:10 | Inpatient (IN) | payer MEDICAID ==
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
[2021-03-29 12:53] LABS: Amphetamine Screen,Urine Not Detected (NotDetected); Barbiturate Screen,Urine Not Detected (NotDetected); Benzodiazepines Screen,Urine Not Detected (NotDetected); Cocaine Screen,Urine Not Detected (NotDetected); Methadone Screen, Urine Not Detected (NotDetected); Opiate Screen,Urine Not Detected (NotDetected); Oxycodone Screen, Urine Not Detected (NotDetected); Phencyclidine Screen,Urine Not Detected (NotDetected); Tricyclic Antidepressant,Urine Not Detected (NotDetected); Urn Cannabinoid Scrn Detected (NotDetected)
[2021-03-29] MEDS ORDERED: MAGNESIUM HYDROXIDE 2,400 MG/10 ML CUP PO PRN (16:38)
[2021-03-29] MEDS ORDERED: LORazepam 1 MG TAB PO PRN (16:38)
[2021-03-29] MEDS ORDERED: MAG HYDROX/AL HYDROX/SIMETH 30 ML CUP PO PRN (16:38)
[2021-03-29] MEDS ORDERED: LORazepam 2 MG/ML INJ IM PRN (16:39)
[2021-03-29] MEDS ORDERED: HALOPERIDOL LACTATE 5 MG/ML 1 ML VIAL IM PRN (16:39)
[2021-03-29] MEDS ORDERED: chlorproMAZINE 25 MG/ML 2 ML AMP IM STA (17:46)
[2021-03-29] MEDS ORDERED: LORazepam 2 MG/ML INJ IM STA (17:47)
[2021-03-29] MEDS: NICOTINE 14MG/24HR PATCH TRANSDERM SCH (17:48)
[2021-03-30 07:38] LABS: Basophils % (A) 0 %; Eosinophils # (A) 0.2 k/uL (0-0.7); Eosinophils % (A) 2 %; HCT 46.7 % (34.0-46.0); Lymphocytes % (A) 29 %; MCH 32.6 pg (25.0-35.0); MCHC 34.3 g/dL (31.0-37.0); MCV 94.9 fL (80.0-100.0); Mean Platelet Volume 8.1; Monocytes # (A) 0.4 k/uL (0-1.0); Monocytes % (A) 4 %; Neutrophils # (A) 6.7 k/uL (1.3-7.7); Neutrophils % (A) 64 %; Platelet Count 275 k/uL (150-450); RBC 4.92 m/uL (3.80-5.40); RDW 12.5 % (11.5-15.5); WBC 10.5 k/uL (3.8-10.6)
[2021-03-30 08:02] LABS: ALT 15 U/L (4-34); AST 23 U/L (14-36); African American GFR (CKD) >90 (>60 ml/min/1.73 sqM); Albumin 4.1 g/dL (3.5-5.0); Alkaline Phosphatase 45 U/L (38-126); Anion Gap 7 mmol/L; Blood Urea Nitrogen 7 mg/dL (7-17); Calcium 9.3 mg/dL (8.4-10.2); Carbon Dioxide 26 mmol/L (22-30); Chloride 107 mmol/L (98-107); Glucose 104 mg/dL (74-99); Non-African American GFR(CKD) >90 (>60 ml/min/1.73 sqM); Potassium 3.3 mmol/L (3.5-5.1); Sodium 140 mmol/L (137-145); Total Bilirubin 1.1 mg/dL (0.2-1.3); Total Protein 6.8 g/dL (6.3-8.2)
[2021-03-30] MEDS: NICOTINE 14MG/24HR PATCH TRANSDERM SCH (08:05)
[2021-03-30] MEDS ORDERED: FLUoxetine HCL 20 MG CAP PO SCH (09:00)
[2021-03-30] MEDS ORDERED: LITHIUM CARBONATE 300 MG CAP PO STA (09:52)
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
[2021-03-30 16:37] LABS: Chol/HDL Ratio 3.66; Cholesterol 139 mg/dL (0-200); LDL Cholesterol,Calculated 86.8 mg/dL (0.0-131.0)
[2021-03-30 18:32] LABS: Hemoglobin A1C 4.5 % (4.0-6.0)
[2021-03-30] MEDS ORDERED: PALIPERIDONE 3 MG TAB.ER.24 PO SCH (21:00)
[2021-03-30] MEDS: LITHIUM CARBONATE 300 MG CAP PO SCH (21:42)
[2021-03-31] MEDS: NICOTINE 14MG/24HR PATCH TRANSDERM SCH (08:07)
[2021-03-31] MEDS: LITHIUM CARBONATE 300 MG CAP PO SCH (08:07)
--- NOTE | 2021-03-31 11:04 | P.PN ---
Progress Note - Text Progress Note Date: 03/31/21 Interval History: Patient was seen wandering the hallways and was directable and agreeable to speak with writer producer in the office. The patient reports that she is feeling better today. She is currently not reporting any suicidal or homicidal ideation, intention, and/or plan. She is denying any overt auditory or visual hallucinations. She continues to endorse some bizarre delusional thoughts and abilities such as the ability to "read people's minds, intentions, and their b reath." She has been adherent with her medications and is not endorsing any significant side effects at this time. She does report that she has some difficulty with sleep, reporting multiple nighttime awakenings. She denies any issues with her appetite. Mental Status Exam: General Appearance: Patient appears to be stated age is alert, directable, and cooperative. Patient has been care. Multiple tattoos. Hygiene and grooming is improved. Behavior: Patient is calmly seated without any agitated behavior. Eye contact is intense. Speech: Patient's speech is fluent and nonpressured. Mood/Affect: Mood is improving mildly, affect is constricted but intense. Suicidality/Homicidality: Patient denies having any suicidal or homicidal ideation intent or plan. Perceptions: Patient denies any visual hallucinations and denies any auditory hallucinations Though content/process: Patient continues endorse bizarre thought content. Thought process appears to be linear but illogical. Memory and concentration: AOX3, grossly intact for the purposes of this session Judgment and insight: Improving mildly Vital Signs Temp 97.4 F L 03/31/21 06:02 Pulse 113 H 03/31/21 06:02 Resp 16 03/31/21 06:02 BP 118/75 03/31/21 06:02 Pulse Ox 98 03/29/21 19:55 Laboratory Results - Last 24 Hours 03/30/21 03/30/21 07:14 07:[address] Glu mg/dL 82 Hemoglobin A1c 4.5 Triglycerides 71.0 Cholesterol 139 LDL Cholesterol, Calc 86.8 VLDL Cholesterol, Calc 14.20 HDL Cholesterol 38.0 L Cholesterol/HDL Ratio 3.66 Assessment Bipolar disorder, type I, current episode manic, with psychotic features Cannabis use disorder Nicotine dependence Plan: -Patient continues to meet criteria for inpatient psychiatric admission for symptom stabilization and safety. The patient was petitioned and certified. Second clinical certificate was filled out yesterday. -Medications: Increase lithium to 450 mg by mouth twice a day for mood stabilization Increase Invega to 6 mg by mouth at bedtime for mood stabilization/psychosis. Plan is to transition patient to long-acting injectable Invega Sustenna -When necessary Ativan and Geodon for agitation/aggression. -NRT - nicotine patch -SW on board for discharge planning. Encouraged the patient to participate in milieu.
[2021-03-31] MEDS: NICOTINE POLACRILEX 2 MG GUM BUCCAL PRN ×2 (11:43→19:29)
[2021-03-31] MEDS: LITHIUM CARBONATE 150 MG CAP PO SCH (20:58)
[2021-03-31] MEDS: PALIPERIDONE 6 MG TAB.ER.24 PO SCH (20:58)
[2021-04-01] MEDS: NICOTINE POLACRILEX 2 MG GUM BUCCAL PRN ×4 (01:00→20:41)
[2021-04-01 01:11] VITALS: RESP 18; TEMP 97.3
[2021-04-01] MEDS: LITHIUM CARBONATE 150 MG CAP PO SCH ×2 (07:52→20:40)
[2021-04-01] MEDS: ACETAMINOPHEN TAB 325 MG TAB PO PRN ×2 (07:53→11:42)
--- NOTE | 2021-04-01 11:12 | P.PN ---
Progress Note - Text Progress Note Date: 04/01/21 Interval History: Patient was seen wandering the hallways and was directable and agreeable to s peak with leader writer in the office. The patient reports that mentally she is feeling improvement today. She does report that she has been feeling some pelvic pain and discomfort. She believes that he may be due to her IUD as she was supposed to have it removed recently. She is not reporting any fevers or chills, hematuria, or discharge. In regards to her mood, the patient is not endorsing any suicidal or homicidal ideation, intention, and/or plan. She is not reporting auditory or visual hallucinations today. She is denying any delusions at this time. She has been adherent with her medications and is not endorsing any significant side effects aside from the pelvic pain she endorsed earlier. Mental Status Exam: General Appearance: Patient appears to be stated age is alert, directable, and cooperative. Patient has been care. Multiple tattoos. Hygiene and grooming is improved. Behavior: Patient is calmly seated without any agitated behavior. Fair eye contact. Speech: Patient's speech is fluent and nonpressured. Mood/Affect: Mood is improving mildly, affect is slightly anxious but otherwise euthymic. Suicidality/Homicidality: Patient denies having any suicidal or homicidal id eation intent or plan. Perceptions: Patient denies any visual hallucinations and denies any auditory hallucinations Though content/process: Patient continues endorse bizarre thought content. Thou ght process appears to be linear but illogical. Memory and concentration: AOX3, grossly intact for the purposes of this session Judgment and insight: Improving mildly Vital Signs Temp 97.3 F L 04/01/21 01:00 Pulse 99 04/01/21 01:00 Resp 18 04/01/21 01:00 BP 126/69 04/01/21 01:00 Pulse Ox 98 03/29/21 19:55 Assessment Bipolar disorder, type I, current episode manic, with psychotic features Cannabis use disorder Nicotine dependence Plan: -Patient continues to meet criteria for inpatient psychiatric admission for symptom stabilization and safety. The patient was petitioned and certified. Second clinical certificate was filled out yesterday. -Medications: Continue 450 mg by mouth twice a day for mood stabilization Continue Invega 6 mg by mouth at bedtime for mood stabilization/psychosis. Plan is to transition patient to long-acting injectable Invega Sustenna -We will order a BMP (monitor kidney function) and lithium level. -When necessary Ativan and Geodon for agitation/aggression. -NRT - nicotine patch -SW on board for discharge planning. Encouraged the patient to participate in milieu.
[2021-04-01 12:31] LABS: African American GFR (CKD) >90 (>60 ml/min/1.73 sqM); Anion Gap 8 mmol/L; Blood Urea Nitrogen 6 mg/dL (7-17); Calcium 9.3 mg/dL (8.4-10.2); Carbon Dioxide 23 mmol/L (22-30); Chloride 107 mmol/L (98-107); Glucose 93 mg/dL (74-99); Lithium 0.8 mmol/L; Non-African American GFR(CKD) >90 (>60 ml/min/1.73 sqM); Potassium 3.9 mmol/L (3.5-5.1); Sodium 138 mmol/L (137-145)
[2021-04-01 13:39] LABS: Appearance,Urine Clear (Clear); Bacteria,Urine Rare /hpf; Bilirubin,Urine Negative (Negative); Blood,Urine Trace (Negative); Color,Urine Yellow; Glucose,Urine (UA) Negative (Negative); Ketones,Urine 2+ (Negative); Leukocyte Esterase,Urine Negative (Negative); Mucus,Urine Rare /hpf; Nitrite,Urine Negative (Negative); PH, Urine 6.5 (5.0-8.0); Protein,Urine Negative (Negative); RBC,Urine 1 /hpf (0-5); Specific Gravity,Urine 1.012 (1.001-1.035); Squamous Epithelial Cell,Urine 1 /hpf (0-4); Urobilinogen,Urine <2.0 mg/dL (<2.0); WBC,Urine 6 /hpf (0-5)
[2021-04-01] MEDS: PALIPERIDONE 6 MG TAB.ER.24 PO SCH (20:40)
[2021-04-02] MEDS: ACETAMINOPHEN TAB 325 MG TAB PO PRN (07:00)
[2021-04-02 07:03] VITALS: BP 105/67; PULSE 92
--- NOTE | 2021-04-02 07:24 | P.CONS ---
History of Present Illness - Reason for Consult Consult date: 03/30/21 medical eval - Chief Complaint psychosis - History of Present Illness Camila murguia is a 36 yo F with PMH of bipolar disorder who was brought to the ED due to hallucinations. She had been responding to internal stimuli so her called EMS. On presentation her initial labs were unremarkable, UDS positive for THC. She currently denies any physical symptoms including chest pain, shortness of breath, abdominal discomfort. Review of Systems All systems: negative Constitutional: Denies chills, Denies fever Eyes: denies blurred vision, denies pain Ears, nose, mouth and throat: Denies headache, Denies sore throat Cardiovascular: Denies chest pain, Denies shortness of breath Respiratory: Denies cough Gastrointestinal: Denies abdominal pain, Denies diarrhea, Denies nausea, Denies vomiting Genitourinary: Denies dysuria, Denies hematuria Musculoskeletal: Denies myalgias Integumentary: Denies pruritus, Denies rash Neurological: Denies numbness, Denies weakness Psychiatric: Reports as per HPI, Reports hallucinations, Denies anxiety, Denies depression Endocrine: Denies fatigue, Denies weight change Past Medical History Past Medical History: Rheumatoid Arthritis (RA) Additional Past Medical History / Comment(s): RA History of Any Multi-Drug Resistant Organisms: None Reported Past Surgical History: No Surgical Hx Reported Past Anesthesia/Blood Transfusion Reactions: No Reported Reaction Past Psychological History: Depression Smoking Status: Current every day smoker Past Alcohol Use History: Occasional Past Drug Use History: Marijuana - Past Family History Mother Family Medical History: No Reported History Medications and Allergies Home Medications Medication Instructions Recorded Confirmed Type FLUoxetine HCL [PROzac] 20 mg PO DAILY 02/20/20 03/31/21 History Allergies Allergy/AdvReac Type Severity Reaction Status Date / Time lamotrigine [From Lamictal] Allergy Intermediate Rash/Hives Verified 03/31/21 11:02 Physical Exam Vitals: Vital Signs Temp Pulse Resp BP 04/02/21 06:00 97.3 F L 92 18 105/67 General: well nourished, well developed, NAD. Vitals reviewed Eyes: PERRL, EOMI, conjunctiva normal HENT: normocephalic, mucus membranes moist Neck: supple, no JVD Lungs: normal respiratory effort, no wheezes or rales CV: Regular rate and rhythm, no murmur. Peripheral pulses 2+ Abdomen: soft, nondistended, no organomegaly Lymph: no cervical or axillary LAD Skin: warm and dry. Neuro: A&Ox3, flattened affect Results CBC & Chem 7: 03/30/21 07:14 04/01/21 11:55 Labs: Abnormal Lab Results - Last 24 Hours (Table) 04/01/21 04/01/21 Range/Units 11:55 13:06 BUN 6 L (7-17) mg/dL Urine Ketones 2+ H (Negative) Urine Blood Trace H (Negative) Urine WBC 6 H (0-5) /hpf Urine Bacteria Rare H (None) /hpf Urine Mucus Rare H (None) /hpf Assessment and Plan Plan: 1. Psychosis. Bipolar disorder with psychotic features. managemeter per psychiat ry. Will continue to follow
[2021-04-02] MEDS: LITHIUM CARBONATE 150 MG CAP PO SCH (08:28)
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
[2021-04-02] MEDS: NICOTINE POLACRILEX 2 MG GUM BUCCAL PRN (14:05)
== END 2021-04-02 14:41 | disposition home or self-care (01) | DRG 885 ==
LOC: EC 11:10 → 3MHU 16:24
PROVIDERS: ADMIT Psychiatry & Neurology Psychiatry; ATTEND Psychiatry & Neurology Psychiatry
DX: F31.2 Bipolar disorder, current episode manic severe with psychotic features (principal); F12.10 Cannabis abuse, uncomplicated; M06.9 Rheumatoid arthritis, unspecified; R10.2 Pelvic and perineal pain; R45.87 Impulsiveness; F17.210 Nicotine dependence, cigarettes, uncomplicated; Z71.6 Tobacco abuse counseling; Z79.899 Other long term (current) drug therapy; Z56.0 Unemployment, unspecified; Z88.8 Allergy status to other drugs, medicaments and biological substances; Z81.8 Family history of other mental and behavioral disorders; Z81.1 Family history of alcohol abuse and dependence
CPT/HCPCS: 80048; 80053; 80061; 80178; 80306; 81001; 81025; 82075; 83036; 84443; 85025; 99285